=== PATIENT | female | born 1980 | race American Indian/Alaskan Native ===

== ENCOUNTER 2019-01-17 15:37 | Emergency (ER) | payer OTHER ==
[2019-01-17 15:45] VITALS: BP 149/93
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
== END 2019-01-17 18:48 | disposition home or self-care (01) ==
LOC: ED 15:37
DX: M54.2 Cervicalgia (principal); G89.29 Other chronic pain; F17.200 Nicotine dependence, unspecified, uncomplicated; Z91.013 Allergy to seafood
CPT/HCPCS: 99281

== ENCOUNTER 2019-11-12 06:40 | Emergency (ER) | payer SELFPAY ==
[2019-11-12 06:55] VITALS: BP 139/87
--- NOTE | 2019-11-12 08:32 | Emergency Department Report ---
ED Head Trauma HPI - General Chief complaint: Fall Stated complaint: HEAD INJURY Time Seen by Provider: 11/12/19 07:35 Source: patient Mode of arrival: Ambulatory Limitations: No Limitations - Related Data Previous Rx's Medication Instructions Recorded Last Taken Type Diclofenac Sodium 50 mg PO BID PRN #10 tablet. 01/17/19 Unknown Rx methOCARBAMOL [Robaxin TAB] 500 mg PO BID #10 tab 01/17/19 Unknown Rx Allergies/Adverse reactions: Allergies Allergy/AdvReac Type Severity Reaction Status Date / Time seafood Allergy Hives Uncoded 01/17/19 15:39 ED Review of Systems ROS: Stated complaint: HEAD INJURY Other details as noted in HPI ED Past Medical Hx - Past Medical History Previous Medical History?: No - Surgical History Past Surgical History?: No - Social History Smoking Status: Never Smoker Substance Use Type: Alcohol - Medications Home Medications: Home Medications Medication Instructions Recorded Confirmed Last Taken Type Diclofenac Sodium 50 mg PO BID PRN #10 tablet. 01/17/19 Unknown Rx methOCARBAMOL [Robaxin TAB] 500 mg PO BID #10 tab 01/17/19 Unknown Rx ED Physical Exam - General Limitations: No Limitations ED Course Vital Signs 11/12/19 11/12/19 06:48 07:58 Temperature 98.6 F Pulse Rate 99 H Respiratory 18 18 Rate Blood Pressure 139/87 O2 Sat by Pulse 95 Oximetry Critical care attestation.: If time is entered above; I have spent that time in minutes in the direct care of this critically ill patient, excluding procedure time. ED Disposition Condition: Stable Referrals: PRIMARY CARE, [Primary Care Provider] - 3-5 Days
--- NOTE | 2019-11-12 08:48 | Emergency Department Report ---
Chief Complaint: Fall Stated Complaint: HEAD INJURY Time Seen by Provider: 11/12/19 07:35 - HPI History of Present Illness: 39-year-old -[place] female without significant past medical history presents with complaints of head injury occurring around 1 AM last night. Patient states she bent over to get out of bed to use the restroom and lost her balance, falling over hitting her head on the floor. She denies any loss of consciousness, nausea/vomiting, dizziness, vision changes, neck pain, numbness/tingling/weakness in her limbs, confusion, difficulty with speech, otorrhea, bruising, or memory loss. She does admit to a mild headache that she rates as a 2/10 in severity and states has been improving since its onset. She rates her pain in her forehead where she hit the floor as a 4/10 in severity and complains of swelling. - ROS Review of Systems: her details as noted in HPI Constitutional: denies: diaphoresis, fever, malaise, weakness ENT: denies: dysphagia Gastrointestinal: denies: nausea, vomiting Musculoskeletal:denies: back pain, joint swelling, neck pain Skin: denies: rash, lesions Neurological: +headache denies: weakness, numbness, paresthesias, abnormal gait Hematological/Lymphatic: denies: easy bleeding - Exam Vital Signs: Vital Signs 11/12/19 11/12/19 06:48 07:58 Temperature 98.6 F Pulse Rate 99 H Respiratory 18 18 Rate Blood Pressure 139/87 O2 Sat by Pulse 95 Oximetry Physical Exam: - General Limitations: No Limitations General appearance: alert, in no apparent distress - Head Head exam: Present: atraumatic, normocephalic - Eye Eye exam: Present: normal appearance - Neck Neck exam: Present: full ROM. Absent: Tenderness - Respiratory Respiratory exam: Present: normal lung sounds bilaterally. Absent: respiratory distress - Cardiovascular Cardiovascular Exam: Present: regular rate, normal rhythm. Absent: systolic murmur, diastolic murmur, rubs, gallop - Extremities Exam Extremities exam: Present: normal inspection, full ROM - Back Exam Back exam: Present: normal inspection, full ROM, vertebral tenderness (Thoracic). Absent: CVA tenderness (R), CVA tenderness (L) - Neurological Exam Neurological exam: Present: alert, oriented X3, CN II-XII intact, normal gait. Absent: motor sensory deficit - Expanded Neurological Exam Expanded Cranial nerves: EOM's Intact: Normal Cerebellar function: Finger to Nose: Normal, Heel to Monk: Normal, Romberg: Normal Sensory exam: Upper Extremity Light Touch: Normal, Lower Extremity Light Touch: Normal Motor strength exam: RUE: 5, LUE: 5, RLE: 5, LLE: 5 Normal rapid hand motion bilaterally MSE screening note: Focused history and physical exam performed. Due to findings the following was ordered: ED Medical Decision Making - Medical Decision Making Patient here with complaint of head injury with swelling to left forehead. She denies any red flag symptoms. Her neuro exam is normal. [place] Head CT rules score = [address] is not necessary for this patient. Emergency intervention is not necessary at this time based on patient's exam and CT head rules. Recommend icing 3 times daily of hematoma to reduce swelling and [id number] ibuprofen as needed pain. Patient given referral info for Dr. Bryan for follow-up with in 3 days. Discussed in great detail with patient signs and symptoms of head trauma and concussion that should prompt immediate return to the emergency department, patient verbalizes understanding. ED Disposition for MSE Clinical Impression: Traumatic hematoma of head Qualifiers: Encounter type: initial encounter Qualified Code(s): S00.93XA - Contusion of unspecified part of head, initial encounter Disposition: MED SCREENING EXAM-LEFT Is pt being admited?: No Condition: Stable Instructions: Minor Head Injury (ED), Contusion in Adults (ED) Referrals: ALEXANDRA BRYAN MD [Staff Physician] - 2-3 Days
== END 2019-11-12 08:58 | disposition left against medical advice (07) ==
LOC: ED 06:40
DX: S00.93XA Contusion of unspecified part of head, initial encounter (principal); W18.39XA Other fall on same level, initial encounter; Y93.89 Activity, other specified; Y92.89 Other specified places as the place of occurrence of the external cause; Y99.8 Other external cause status
CPT/HCPCS: 99281